=== PATIENT | male | born 1990 ===

== ENCOUNTER 2018-03-08 18:57 | Emergency (ER) | payer BC, OTHER ==
[~2018-03-08] VITALS: Ht 177.8 cm; Wt 84.4 kg
[2018-03-08] MEDS ORDERED: TESTOSTERO200 MG/1 M IM (19:20)
[2018-03-08] MEDS ORDERED: triumeq (19:20)
[2018-03-08] MEDS ORDERED: OMEPRAZOLE10 M1 ORAL (19:20)
--- NOTE | 2018-03-08 19:36 | Emergency Room Report ---
History of Present Illness General Chief Complaint: Skin Rash/Abscess Source: Patient Present Illness HPI 27-year-old male presents to the emergency department complaining of erythema, swelling , 6 out of 10 in severity tenderness to the left anterior thigh 3 days. Patient reports in injecting testosterone intramuscularly in that area on Monday. He states his symptoms have been progressive denies fevers or chills. He reports that he is HIV positive and that his viral load is undetectable however he does not know when his last CD4 count was. Denies paresthesias, or loss of gross motor movements of the affected extremity. Allergies: Coded Allergies: No Known Allergies (Unverified , 03/08/18) Patient History Past Medical History: see triage record, HIV Past Surgical History: none Pertinent Family History: none Immunizations: UTD Reviewed Nursing Documentation: PMH: Agreed; PSxH: Agreed Nursing Documentation-PMH Hx Cardiac Problems: No - HIV+ Hx Gastrointestinal Problems: Yes - H Pylori Review of Systems All Other Systems: negative except mentioned in HPI Physical Exam Vital Signs Date Time Temp Pulse Resp B/P (MAP) Pulse Ox O2 Delivery O2 Flow Rate FiO2 03/08/18 19:13 98.4 104 16 132/90 96 Room Air 98.4 Sp02 EP Interpretation: reviewed, normal General Appearance: no apparent distress, alert, GCS 15, non-toxic Head: normocephalic, atraumatic ENT: hearing grossly normal, normal voice Neck: full range of motion Respiratory: lungs clear, normal breath sounds, speaking full sentences Cardiovascular #1: regular rate, rhythm, no edema, normal capillary refill Musculoskeletal: back normal, gait/station normal, normal range of motion, swelling - distal anterior left thigh. , tender - TTP anterior. left thigh. no extension into the knee. Neurologic: alert, oriented x3, responsive, motor strength/tone normal, sensory intact, normal gait, speech normal, grossly normal Psychiatric: judgement/insight normal Skin: no rash, warm/dry, well hydrated, other - Non-blanching erythema, increased temperature to palpation with swelling noted to the anterior left thigh. Lymphatic: no adenopathy Medical Decision Making PA Attestation Dr. miles is my supervising Physician whom patient management has been discussed with. Diagnostic Impression: Primary Impression: Cellulitis of left thigh Additional Impression: History of HIV infection ER Course 27-year-old male presents to the emergency department complaining of erythema, swelling , 6 out of 10 in severity tenderness to the left anterior thigh 3 days. Patient reports in injecting testosterone intramuscularly in that area on Monday. He states his symptoms have been progressive denies fevers or chills. He reports that he is HIV positive and that his viral load is undetectable however he does not know when his last CD4 count was. Denies paresthesias, or loss of gross motor movements of the affected extremity. Ddx considered but are not limited to cellulitis, Abscess, septic joint, opportunistic infection, Sepsis just to name a few. Vital signs: Mild tachycardia of 104, remaining VS are WNL, pt. is afebrile H&PE are most consistent with the Cellulitis of the left anterior thigh in an immune-compromised individual. No appreciable palpable fluctuance/abscess. No extension into the knee joint. No significant evidence to suggest systemic spread of infection. ORDERS: none required at this time, the diagnosis is clinical Pt. was evaluated by general surgery, Dr. Egan. A bedside ultrasound was performed to is possibility of abscess formation withtin the muscle. ED INTERVENTIONS: - -Keflex PO -Bactrim PO Discussed with this patient that he would've benefited from IV antibiotics loading dose here in the emergency department. However, he respectfully declined. Encouraged this patient to return promptly to the emergency department with worsening or new symptoms otherwise follow-up with his primary care/infectious disease doctor within 3-5 days. DISCHARGE: At this time pt. is stable for d/c to home. Will provide printed patient care instructions, and any necessary prescriptions. Care plan and follow up instructions have been discussed with the patient prior to discharge. Last Vital Signs Date Time Temp Pulse Resp B/P (MAP) Pulse Ox O2 Delivery O2 Flow Rate FiO2 03/08/18 19:13 98.4 104 16 132/90 96 Room Air 98.4 Disposition: HOME, SELF-CARE Condition: Stable Physician Consult: Dr. Egan ( General Surgery) Scripts Ibuprofen* (MOTRIN*) 600 Mg Tablet 600 MG ORAL THREE TIMES A DAY, #20 TAB 0 Refills Prov: Glory Hurt P.A. 03/08/18 Trimethoprim/Sulfamethoxazole 160/800* (BACTRIM DS TABLET*) 1 Each Tablet 1 TAB ORAL DAILY, #14 TAB Prov: Glory Hurt P.A. 03/08/18 Cephalexin* (KEFLEX*) 500 Mg Capsule 500 MG ORAL EVERY 12 HOURS for 7 Days, #14 CAP 0 Refills Prov: Glory Hurt 03/08/18 Patient Instructions: Cellulitis, [id number] Additional Instructions: Take medications as directed. Follow up with a Primary Care Provider in 3-5 days, even if your symptoms have resolved. --Please review list of primary care clinics, if you do not already have a primary care provider Return sooner to ED if new symptoms occur, or current symptoms become worse. - Please note that this Emergency Department Report was dictated using [employer] room maid technology software, occasionally this can lead to erroneous entry secondary to interpretation by the dictation equipment. Glory Hurt March 08, 2018 19:36
[2018-03-08] MEDS ORDERED: Bactrim-DS 1 tab ORAL ONE ×2 (19:45→20:00)
[2018-03-08] MEDS ORDERED: Cephalexin 500mg cap ORAL ONE ×2 (19:45→20:00)
--- NOTE | 2018-03-08 20:01 | Consultation ---
History of Present Illness General Date patient seen: March 08, 2018 Chief Complaint: Skin Rash/Abscess Reason for Consultation: left thigh cellulitis Present Illness HPI 27 year old male with history of HIV+ controlled on testosterone supplementation via PCP presented with left thigh pain and swelling for 1-2 days. states that he usually injects testosterone three times a week into thighs. sometimes into right thigh and sometimes into left. does not like gluteal injections. last injection monday and noted pain, swelling, and redness in left anterior thigh. called his PCP and came to ED for evaluation. surgery called to evaluate for possible abscess vs cellulitis. patient seen, chart reviewed, patient examined. Allergies: Coded Allergies: No Known Allergies (Unverified , 03/08/18) Medication History Scheduled Omeprazole (Omeprazole), Unknown Dose ORAL DAILY, (Reported) Testosterone Cypionate (Testosterone Cypionate), 200 MG IM ONCE A WEEK, ( Reported) Miscellaneous Medications [triumeq], (Reported) Patient History History Provided By: Patient, Medical Record Healthcare decision maker Resuscitation status Advanced Directive on File Past Medical/Surgical History Past Medical/Surgical History: (1) Cellulitis of left thigh Review of Systems All Other Systems: negative except mentioned in HPI Physical Exam General Appearance: no apparent distress, alert Lines, tubes and drains: peripheral HEENT: normocephalic, mucous membranes moist Neck: non-tender Respiratory/Chest: chest wall non-tender, lungs clear, normal breath sounds, no respiratory distress, no accessory muscle use Cardiovascular/Chest: normal peripheral pulses, normal rate, regular rhythm Abdomen: normal bowel sounds, non tender, soft, no organomegaly, no mass Extremities: other - left thigh with mild edema, mild erythema, warmth, no fluctuance no drainage Skin Exam: normal pigmentation Neurologic: alert, oriented x 3 Last 24 Hour Vital Signs Date Time Temp Pulse Resp B/P (MAP) Pulse Ox O2 Delivery O2 Flow Rate FiO2 03/08/18 19:13 98.4 104 16 132/90 96 Room Air 98.4 Height (Feet): 5 Height (Inches): 10.00 Weight (Pounds): 186 Assessment/Plan Problem List: (1) Cellulitis of left thigh Assessment & Plan: 27M cellulitis of left thigh after injection of testosterone. afebrile, HD Stable, exam as above. bedside ultrasound performed by myself and no abscess noted. some mild edema around subcutaneous fat but no large fluid collection. patient states improved over the past day but came to evaluation -no acute surgical intervention necessary -keep leg elevated when possible -activity as tolerated -oral Abx Rx -okay to d/c. follow up with me next week return to ED if worsening condition. ICD Codes: L03.116 - Cellulitis of left lower limb SNOMED: [id number] Status: stable CassiaSemaj March 08, 2018 20:01
[2018-03-08] MEDS ORDERED: BACTRIM DS TAB1 EAC1 ORAL (20:09)
[2018-03-08] MEDS ORDERED: CEPHALEXIN500 MG ORAL (20:09)
[2018-03-08] MEDS ORDERED: IBUPROFEN600 MG ORAL (20:10)
[2018-03-08 20:19] VITALS: BP 124/83
[2018-03-08 20:20] VITALS: BP 132/90
== END 2018-03-08 20:20 | disposition home or self-care (01) ==
LOC: EMR 20:03
DX: L03.116 Cellulitis of left lower limb (principal); Z21 Asymptomatic human immunodeficiency virus [HIV] infection status
CPT/HCPCS: 99284

== ENCOUNTER 2018-11-12 11:10 | Emergency (ER) | payer BC, OTHER ==
[~2018-11-12] VITALS: Ht 177.8 cm; Wt 70.8 kg
[~2018-11-12 11:10] MED LIST: BACTRIM DS TAB1 EAC1 ORAL; CEPHALEXIN500 MG ORAL; IBUPROFEN600 MG ORAL; OMEPRAZOLE10 M1 ORAL; TESTOSTERO200 MG/1 M IM; triumeq
[2018-11-12 11:20] VITALS: BP 117/67
--- NOTE | 2018-11-12 11:20 | NUR ---
ED Nurse Note: Patient arrived, ambulatory, alert and oriented x4. No distress. Came in for complain of nausea, vomiting, pain and diarrhea that started last Monday night. Patient reports he has eaten meat prior to episodes. He reports BM today x3, soft, no nausea or vomiting. With complain of 8-9/10 cramping abdominal pain.
[2018-11-12] MEDS ORDERED: Mylanta II UD 30ml ORAL ONE (11:30)
[2018-11-12] MEDS ORDERED: Lidocaine 2% Visc 15ml soln ORAL ONE (11:30)
[2018-11-12] MEDS ORDERED: LEVOFLOXACIN500 MG ORAL (11:32)
[2018-11-12] MEDS ORDERED: AMOXICILLIN500 MG ORAL (11:32)
[2018-11-12] MEDS ORDERED: TRIUMEQ 600-501 EACH PO (11:32)
[2018-11-12] MEDS ORDERED: METRONIDAZOLE500 MG ORAL (11:32)
[2018-11-12] MEDS ORDERED: OMEPRAZOLE40 M1 ORAL (11:32)
[2018-11-12 11:57] LABS: APPEARANCE,URINE CLEAR; BASOPHILS % (AUTO) 0.9 % (0.0-2.0); BILIRUBIN, URINE NEGATIVE (NEGATIVE); COLOR,URINE PALE YELLOW; EOSINOPHILS % (AUTO) 0.9 % (0.0-3.0); GLUCOSE, URINE (UA) NEGATIVE (NEGATIVE); HEMATOCRIT 46.8 % (42.0-52.0); HEMOGLOBIN 15.5 G/DL (14.2-18.0); KETONES,URINE NEGATIVE (NEGATIVE); LEUKOCYTE ESTERASE ,URINE 1+ (NEGATIVE); LYMPHOCYTES % (AUTO) 36.3 % (20.0-45.0); MEAN CORPUSCULAR VOLUME 91 FL (80-99); MONOCYTES % (AUTO) 12.1 % (1.0-10.0); NEUTROPHILS % (AUTO) 49.8 % (45.0-75.0); NITRITE,URINE NEGATIVE (NEGATIVE); PH,URINE 7 (4.5-8.0); PLATELET COUNT 256 K/UL (150-450); PROTEIN,URINE NEGATIVE (NEGATIVE); RED BLOOD COUNT 5.14 M/UL (4.70-6.10); UROBILINOGEN,URINE NORMAL MG/DL (0.0-1.0); WHITE BLOOD COUNT 4.6 K/UL (4.8-10.8)
[2018-11-12 12:15] LABS: ANION GAP 6 mmol/L (5-15); BLOOD UREA NITROGEN 8 mg/dL (7-18); CALCIUM 8.9 MG/DL (8.5-10.1); CARBON DIOXIDE 29 MMOL/L (21-32); CHLORIDE 105 MMOL/L (98-107); CREATININE 1.3 MG/DL (0.55-1.30); POTASSIUM 4.4 MMOL/L (3.5-5.1); SODIUM 140 MMOL/L (136-145)
[2018-11-12 12:19] LABS: ALANINE AMINOTRANSFERASE 75 U/L (12-78); ALBUMIN 3.3 G/DL (3.4-5.0); ALKALINE PHOSPHATASE 75 U/L (46-116); ASPARTATE AMINO TRANSFERASE 24 U/L (15-37); BILIRUBIN,TOTAL 0.2 MG/DL (0.2-1.0)
--- NOTE | 2018-11-12 14:36 | Emergency Room Report ---
History of Present Illness General Chief Complaint: Abdominal Pain Source: Medical Record Present Illness Allergies: Coded Allergies: No Known Allergies (Unverified , 11/12/18) Nursing Documentation-PMH Hx Cardiac Problems: No - HIV+ Hx Gastrointestinal Problems: Yes - H Pylori, ecoli shigella Physical Exam Vital Signs Date Time Temp Pulse Resp B/P (MAP) Pulse Ox O2 Delivery O2 Flow Rate FiO2 11/12/18 11:14 98.1 87 16 122/79 97 11/12/18 11:20 Room Air Medical Decision Making Laboratory Tests Test 11/12/18 11:23 White Blood Count 4.6 K/UL (4.8-10.8) L Red Blood Count 5.14 M/UL (4.70-6.10) Hemoglobin 15.5 G/DL (14.2-18.0) Hematocrit 46.8 % (42.0-52.0) Mean Corpuscular Volume 91 FL (80-99) Mean Corpuscular Hemoglobin 30.2 PG (27.0-31.0) Mean Corpuscular Hemoglobin Concent 33.2 G/DL (32.0-36.0) Red Cell Distribution Width 14.0 % (11.6-14.8) Platelet Count 256 K/UL (150-450) Mean Platelet Volume 5.8 FL (6.5-10.1) L Neutrophils (%) (Auto) 49.8 % (45.0-75.0) Lymphocytes (%) (Auto) 36.3 % (20.0-45.0) Monocytes (%) (Auto) 12.1 % (1.0-10.0) H Eosinophils (%) (Auto) 0.9 % (0.0-3.0) Basophils (%) (Auto) 0.9 % (0.0-2.0) Urine Color Pale yellow Urine Appearance Clear Urine pH 7 (4.5-8.0) Urine Specific [place] 1.005 (1.005-1.035) Urine Protein Negative (NEGATIVE) Urine Glucose (UA) Negative (NEGATIVE) Urine Ketones Negative (NEGATIVE) Urine Blood Negative (NEGATIVE) Urine Nitrite Negative (NEGATIVE) Urine Bilirubin Negative (NEGATIVE) Urine Urobilinogen Normal MG/DL (0.0-1.0) Urine Leukocyte Esterase 1+ (NEGATIVE) H Urine RBC 0 /HPF (0 - 0) Urine WBC 0-2 /HPF (0 - 0) Urine Squamous Epithelial Cells Occasional /LPF Urine Bacteria Occasional /HPF (NONE) Sodium Level 140 MMOL/L (136-145) Potassium Level 4.4 MMOL/L (3.5-5.1) Chloride Level 105 MMOL/L (98-107) Carbon Dioxide Level 29 MMOL/L (21-32) Anion Gap 6 mmol/L (5-15) Blood Urea Nitrogen 8 mg/dL (7-18) Creatinine 1.3 MG/DL (0.55-1.30) Estimate Glomerular Filtration Rate > 60 mL/min (>60) Glucose Level 81 MG/DL (74-106) Calcium Level 8.9 MG/DL (8.5-10.1) Total Bilirubin 0.2 MG/DL (0.2-1.0) Aspartate Amino Transferase (AST) 24 U/L (15-37) Alanine Aminotransferase (ALT) 75 U/L (12-78) Alkaline Phosphatase 75 U/L (46-116) Total Protein 6.7 G/DL (6.4-8.2) Albumin 3.3 G/DL (3.4-5.0) L Globulin 3.4 g/dL Albumin/Globulin Ratio 1.0 (1.0-2.7) Lipase 91 U/L (73-393) Last Vital Signs Date Time Temp Pulse Resp B/P (MAP) Pulse Ox O2 Delivery O2 Flow Rate FiO2 11/12/18 11:20 81 16 Room Air 11/12/18 11:20 97.6 117/67 98 Referrals: JOSEPH ESPARZA D.O. (PCP) Tasneem Swann DO Nov 12, 2018 14:36
[2018-11-12] MEDS ORDERED: SIMETHICONE125 M1 PO (14:39)
[2018-11-12] MEDS ORDERED: ACIDOPHILUS PR1 EACH PO (14:39)
[2018-11-12 14:45] VITALS: BP 120/67
[2018-11-12 14:47] VITALS: BP 120/67
--- NOTE | 2018-11-12 14:47 | NUR ---
ED Nurse Note: Patient reports pain and nausea improved. No episode of vomiting during stay. With order of discharge. Patient's vital signs stable. IV discontinued. Discharge instructions and prescription given to patient and vebralized understanding. Stable ambulation noted. Discharged home.
== END 2018-11-12 14:50 | disposition home or self-care (01) ==
LOC: EMR 11:53
DX: R10.9 Unspecified abdominal pain (principal)
CPT/HCPCS: 36415; 80053; 81003; 83690; 85025; 96361; 96374; 96375; 99284; J2405; S0028

== ENCOUNTER 2019-02-07 02:35 | Emergency (ER) | payer BC, OTHER ==
[~2019-02-07] VITALS: Ht 152.4 cm; Wt 77.1 kg
[~2019-02-07 02:35] MED LIST changes: +ACIDOPHILUS PR1 EACH PO; +AMOXICILLIN500 MG ORAL; +LEVOFLOXACIN500 MG ORAL; +METRONIDAZOLE500 MG ORAL; +OMEPRAZOLE40 M1 ORAL; +SIMETHICONE125 M1 PO; +TRIUMEQ 600-501 EACH PO
--- NOTE | 2019-02-07 02:56 | Emergency Room Report ---
History of Present Illness General Chief Complaint: Abdominal Pain Source: Patient Present Illness HPI Patient is a 28-year-old male presented after increased abdominal discomfort and distention. Patient reports having increased epigastric pain which radiates to his chest and back. He reports having prior history of H. pylori and gastritis. He states he took some omeprazole as well as loratadine. With some improvement in symptoms. Patient additionally took some ciprofloxacin which he had at home. Patient stated he had been having increased constipation. Patient denies any bleeding. He denies any lower abdominal pain.Patient reports having some alcohol earlier in the day. Allergies: Coded Allergies: No Known Allergies (Unverified , 11/12/18) Patient History Past Medical History: see triage record, HIV Reviewed Nursing Documentation: PMH: Agreed; PSxH: Agreed Nursing Documentation-PMH Past Medical History: No History, Except For Hx Cardiac Problems: No - HIV+ Hx Gastrointestinal Problems: Yes - H Pylori Review of Systems All Other Systems: negative except mentioned in HPI Physical Exam Vital Signs Date Time Temp Pulse Resp B/P (MAP) Pulse Ox O2 Delivery O2 Flow Rate FiO2 02/07/19 02:40 97.9 69 18 155/96 100 Room Air Sp02 EP Interpretation: reviewed, normal General Appearance: normal inspection, well appearing, no apparent distress, alert, GCS 15, non-toxic Head: atraumatic ENT: normal ENT inspection, hearing grossly normal, normal voice Neck: normal inspection, full range of motion, supple, no bony tend Respiratory: normal inspection, lungs clear, normal breath sounds, no respiratory distress, no retraction, no wheezing Cardiovascular #1: regular rate, rhythm, no edema Gastrointestinal: normal inspection, normal bowel sounds, non tender, soft, no guarding, no hernia Genitourinary: no CVA tenderness Musculoskeletal: normal inspection, back normal, normal range of motion Neurologic: normal inspection, alert, responsive, speech normal Psychiatric: normal inspection, judgement/insight normal, mood/affect normal Skin: normal inspection, normal color, no rash Medical Decision Making Diagnostic Impression: Primary Impression: Gastritis Additional Impression: History of HIV infection ER Course Patient presented for abdominal pain. Differential diagnoses included ischemic bowel, appendicitis, perforated viscus, abdominal aortic aneurysm, inferior myocardial infarction, viral gastroenteritis among others. Because of complexity of patient's case laboratory testing and imaging studies were ordered. Patient was given IV fluids as well as acid blockers. Patient was given GI cocktail with some improvement. Patient was noted to have long- standing history of gastritis. Patient was advised to follow-up with his primary care physician for recheck in the next 1 to 2 days. He is to return if any worsening of condition or other concerns. Labs Test 02/07/19 02:45 02/07/19 03:45 White Blood Count 6.6 K/UL (4.8-10.8) Red Blood Count 4.97 M/UL (4.70-6.10) Hemoglobin 15.2 G/DL (14.2-18.0) Hematocrit 45.1 % (42.0-52.0) Mean Corpuscular Volume 91 FL (80-99) Mean Corpuscular Hemoglobin 30.5 PG (27.0-31.0) Mean Corpuscular Hemoglobin Concent 33.6 G/DL (32.0-36.0) Red Cell Distribution Width 12.9 % (11.6-14.8) Platelet Count 293 K/UL (150-450) Mean Platelet Volume 4.9 FL (6.5-10.1) Neutrophils (%) (Auto) 56.5 % (45.0-75.0) Lymphocytes (%) (Auto) 30.7 % (20.0-45.0) Monocytes (%) (Auto) 10.6 % (1.0-10.0) Eosinophils (%) (Auto) 1.2 % (0.0-3.0) Basophils (%) (Auto) 1.0 % (0.0-2.0) Sodium Level 139 MMOL/L (136-145) Potassium Level 3.9 MMOL/L (3.5-5.1) Chloride Level 103 MMOL/L (98-107) Carbon Dioxide Level 28 MMOL/L (21-32) Anion Gap 8 mmol/L (5-15) Blood Urea Nitrogen 15 mg/dL (7-18) Creatinine 1.3 MG/DL (0.55-1.30) Estimat Glomerular Filtration Rate > 60 mL/min (>60) Glucose Level 94 MG/DL (74-106) Calcium Level 8.6 MG/DL (8.5-10.1) Total Bilirubin 0.4 MG/DL (0.2-1.0) Aspartate Amino Transf (AST/SGOT) 32 U/L (15-37) Alanine Aminotransferase (ALT/SGPT) 32 U/L (12-78) Alkaline Phosphatase 73 U/L (46-116) Troponin I 0.014 ng/mL (0.000-0.056) Total Protein 7.1 G/DL (6.4-8.2) Albumin 3.5 G/DL (3.4-5.0) Globulin 3.6 g/dL Albumin/Globulin Ratio 1.0 (1.0-2.7) Lipase 90 U/L (73-393) Urine Color Pale yellow Urine Appearance Clear Urine pH 7 (4.5-8.0) Urine Specific [place] 1.010 (1.005-1.035) Urine Protein Negative (NEGATIVE) Urine Glucose (UA) Negative (NEGATIVE) Urine Ketones Negative (NEGATIVE) Urine Blood Negative (NEGATIVE) Urine Nitrite Negative (NEGATIVE) Urine Bilirubin Negative (NEGATIVE) Urine Urobilinogen Normal MG/DL (0.0-1.0) Urine Leukocyte Esterase 1+ (NEGATIVE) Urine RBC 0-2 /HPF (0 - 0) Urine WBC 0-2 /HPF (0 - 0) Urine Squamous Epithelial Cells None /LPF (NONE/OCC) Urine Bacteria None /HPF (NONE) EKG Diagnostic Results Rate: normal - 84 Rhythm: NSR ST Segments: no acute changes Last Vital Signs Date Time Temp Pulse Resp B/P (MAP) Pulse Ox O2 Delivery O2 Flow Rate FiO2 02/07/19 02:40 97.9 69 18 155/96 100 Room Air Status: improved Disposition: HOME, SELF-CARE Condition: Stable Scripts Docusate Sodium* (COLACE*) 100 Mg Capsule 100 MG ORAL TWICE A DAY for constipation, #30 CAP Prov: Geoffrey Torres MD 02/07/19 Dicyclomine Hcl* (DICYCLOMINE HCL*) 10 Mg Capsule 10 MG PO QID, #30 CAP Prov: Geoffrey Torres MD 02/07/19 Geoffrey Torres MD Feb 07, 2019 02:56
[2019-02-07] MEDS ORDERED: Dicyclomine HCl 10mg/5ml oral soln ORAL ONE (03:00)
[2019-02-07] MEDS ORDERED: Mylanta II UD 30ml ORAL ONE (03:00)
[2019-02-07] MEDS ORDERED: Lidocaine 2% Visc 15ml soln ORAL ONE (03:00)
[2019-02-07] MEDS ORDERED: Ketorolac 30mg Inj IV ONE (03:15)
[2019-02-07 03:20] LABS: EOSINOPHILS % (AUTO) 1.2 % (0.0-3.0); HEMATOCRIT 45.1 % (42.0-52.0); HEMOGLOBIN 15.2 G/DL (14.2-18.0); LYMPHOCYTES % (AUTO) 30.7 % (20.0-45.0); MEAN CORPUSCULAR VOLUME 91 FL (80-99); MONOCYTES % (AUTO) 10.6 % (1.0-10.0); NEUTROPHILS % (AUTO) 56.5 % (45.0-75.0); PLATELET COUNT 293 K/UL (150-450); RED BLOOD COUNT 4.97 M/UL (4.70-6.10); RED CELL DISTRIBUTION WIDTH 12.9 % (11.6-14.8); WHITE BLOOD COUNT 6.6 K/UL (4.8-10.8)
[2019-02-07 03:21] VITALS: BP 148/90
[2019-02-07 03:31] LABS: ANION GAP 8 mmol/L (5-15); BLOOD UREA NITROGEN 15 mg/dL (7-18); CALCIUM 8.6 MG/DL (8.5-10.1); CARBON DIOXIDE 28 MMOL/L (21-32); CHLORIDE 103 MMOL/L (98-107); CREATININE 1.3 MG/DL (0.55-1.30); POTASSIUM 3.9 MMOL/L (3.5-5.1); SODIUM 139 MMOL/L (136-145)
[2019-02-07 03:35] LABS: ALANINE AMINOTRANSFERASE 32 U/L (12-78); ALBUMIN 3.5 G/DL (3.4-5.0); ALKALINE PHOSPHATASE 73 U/L (46-116); ASPARTATE AMINO TRANSFERASE 32 U/L (15-37); BILIRUBIN,TOTAL 0.4 MG/DL (0.2-1.0)
[2019-02-07] MEDS ORDERED: COLACE100 MG ORAL (03:48)
[2019-02-07] MEDS ORDERED: DICYCLOMINE HCL10 MG PO (03:48)
[2019-02-07 03:58] VITALS: BP 134/78
[2019-02-07 03:58] LABS: APPEARANCE,URINE CLEAR; BILIRUBIN, URINE NEGATIVE (NEGATIVE); COLOR,URINE PALE YELLOW; GLUCOSE, URINE (UA) NEGATIVE (NEGATIVE); KETONES,URINE NEGATIVE (NEGATIVE); LEUKOCYTE ESTERASE ,URINE 1+ (NEGATIVE); NITRITE,URINE NEGATIVE (NEGATIVE); PH,URINE 7 (4.5-8.0); PROTEIN,URINE NEGATIVE (NEGATIVE); UROBILINOGEN,URINE NORMAL MG/DL (0.0-1.0)
[2019-02-07 03:59] VITALS: BP 134/78
--- NOTE | 2019-02-08 22:00 | Cardiology Report ---
APPROVED REPORT EKG Measurement Heart [id number] Normal sinus rhythm Incomplete right bundle branch block Borderline ECG
== END 2019-02-07 03:59 | disposition home or self-care (01) ==
LOC: EMR 02:54
DX: K29.70 Gastritis, unspecified, without bleeding (principal)
CPT/HCPCS: 36415; 80053; 81003; 83690; 84484; 85025; 93005; 96361; 96374; 96375; 99284; J1885; J2405

== ENCOUNTER 2019-09-10 10:35 | Emergency (ER) | payer BC, OTHER ==
[~2019-09-10] VITALS: Ht 177.8 cm; Wt 83.9 kg
[~2019-09-10 10:35] MED LIST changes: +COLACE100 MG ORAL; +DICYCLOMINE HCL10 MG PO
[2019-09-10 11:00] VITALS: BP 154/99
--- NOTE | 2019-09-10 11:00 | NUR ---
ED Nurse Note: patient walked into ER from home d/t lower left abdomen cramping pain 8/10 radiating to right lower abdomen that started 2 days ago. Patient aao x 4 and ambulatory. Patient stated he has hx of gall stones and kidney stones. Per patient, he was taking atb for h.pylori and stopped 3 days ago. Patient changed into gown and placed on shelter monitor. Patient calm and cooperative. No acute distress noted.
--- NOTE | 2019-09-10 11:27 | Emergency Room Report ---
History of Present Illness General Chief Complaint: General Complaint Source: Patient Present Illness HPI Patient is a 29-year-old male presents after increased sore throat and discoloration to his tongue. He reports having multiple areas of pain including his epigastric area as well as his right lower abdomen. He states that he had recently finished a course of antibiotics for H. pylori treatment. He is currently taking medications for HIV. He is followed by Dr. King. Patient denies any fever.He reports having prior endoscopy and having burning sensation to the chest as well as to the throat. He reports having prior history of anxiety.He states that he takes hGH as well as steroids. Allergies: Coded Allergies: No Known Allergies (Unverified , 11/12/18) Patient History Past Medical History: see triage record Reviewed Nursing Documentation: PMH: Agreed; PSxH: Agreed Nursing Documentation-PMH Hx Gastrointestinal Problems: Yes - H Pylori Review of Systems All Other Systems: negative except mentioned in HPI Physical Exam Vital Signs Date Time Temp Pulse Resp B/P (MAP) Pulse Ox O2 Delivery O2 Flow Rate FiO2 09/10/19 10:41 98.6 108 22 148/108 (121) 95 Room Air Sp02 EP Interpretation: reviewed, normal General Appearance: normal inspection, well appearing, no apparent distress, alert, GCS 15, non-toxic Head: atraumatic ENT: normal ENT inspection, hearing grossly normal, normal voice, other - tongue with some discoloration Neck: normal inspection, full range of motion, supple, no bony tend Respiratory: normal inspection, lungs clear, normal breath sounds, no respiratory distress, no retraction, no wheezing Cardiovascular #1: regular rate, rhythm, no edema Gastrointestinal: normal inspection, normal bowel sounds, soft, no guarding, no hernia Genitourinary: no CVA tenderness Musculoskeletal: normal inspection, back normal, normal range of motion Neurologic: alert, motor strength/tone normal, software packager III-XII nml as tested, EOM palsy, oriented x3, responsive, speech normal, normal inspection Psychiatric: normal inspection, judgement/insight normal, mood/affect normal Skin: no rash Medical Decision Making Diagnostic Impression: Primary Impression: Gastritis Additional Impression: GERD (gastroesophageal reflux disease) ER Course Patient presented for abdominal pain. Differential diagnoses included ischemic bowel, appendicitis, perforated viscus, abdominal aortic aneurysm, inferior myocardial infarction, viral gastroenteritis among others.Because patient's complexity imaging studies, and laboratory testing ordered. Laboratory testing showed . Electrolytes Lipase was White blood count was CT of the abdomen pelvis showed: Patient appears to be stable for close outpatient follow up. Labs Test 09/10/19 11:00 White Blood Count 5.8 K/UL (4.8-10.8) Red Blood Count 5.47 M/UL (4.70-6.10) Hemoglobin 15.5 G/DL (14.2-18.0) Hematocrit 48.1 % (42.0-52.0) Mean Corpuscular Volume 88 FL (80-99) Mean Corpuscular Hemoglobin 28.3 PG (27.0-31.0) Mean Corpuscular Hemoglobin Concent 32.2 G/DL (32.0-36.0) Red Cell Distribution Width 13.7 % (11.6-14.8) Platelet Count 415 K/UL (150-450) Mean Platelet Volume 4.5 FL (6.5-10.1) Neutrophils (%) (Auto) 68.2 % (45.0-75.0) Lymphocytes (%) (Auto) 23.1 % (20.0-45.0) Monocytes (%) (Auto) 7.0 % (1.0-10.0) Eosinophils (%) (Auto) 0.9 % (0.0-3.0) Basophils (%) (Auto) 0.8 % (0.0-2.0) Prothrombin Time 11.0 SEC (9.30-11.50) Prothromb Time International Ratio 1.0 (0.9-1.1) Activated Partial Thromboplast Time 27 SEC (23-33) Urine Color Pale yellow Urine Appearance Clear Urine pH 7 (4.5-8.0) Urine Specific [place] 1.010 (1.005-1.035) Urine Protein 1+ (NEGATIVE) Urine Glucose (UA) Negative (NEGATIVE) Urine Ketones Negative (NEGATIVE) Urine Blood 1+ (NEGATIVE) Urine Nitrite Negative (NEGATIVE) Urine Bilirubin Negative (NEGATIVE) Urine Urobilinogen Normal MG/DL (0.0-1.0) Urine Leukocyte Esterase Negative (NEGATIVE) Urine RBC 0-2 /HPF (0 - 0) Urine WBC 0-2 /HPF (0 - 0) Urine Squamous Epithelial Cells Occasional /LPF Urine Bacteria Few /HPF (NONE) Sodium Level 141 MMOL/L (136-145) Potassium Level 4.3 MMOL/L (3.5-5.1) Chloride Level 107 MMOL/L (98-107) Carbon Dioxide Level 23 MMOL/L (21-32) Anion Gap 11 mmol/L (5-15) Blood Urea Nitrogen 14 mg/dL (7-18) Creatinine 1.0 MG/DL (0.55-1.30) Estimat Glomerular Filtration Rate > 60 mL/min (>60) Glucose Level 112 MG/DL (74-106) Calcium Level 8.1 MG/DL (8.5-10.1) Total Bilirubin 0.4 MG/DL (0.2-1.0) Aspartate Amino Transf (AST/SGOT) 34 U/L (15-37) Alanine Aminotransferase (ALT/SGPT) 71 U/L (12-78) Alkaline Phosphatase 54 U/L (46-116) Troponin I 0.005 ng/mL (0.000-0.056) Total Protein 7.4 G/DL (6.4-8.2) Albumin 3.6 G/DL (3.4-5.0) Globulin 3.8 g/dL Albumin/Globulin Ratio 0.9 (1.0-2.7) Lipase 166 U/L (73-393) Last Vital Signs Date Time Temp Pulse Resp B/P (MAP) Pulse Ox O2 Delivery O2 Flow Rate FiO2 09/10/19 11:00 98.6 110 22 154/99 96 Room Air Geoffrey Torres MD Sep 10, 2019 11:27
[2019-09-10] MEDS ORDERED: Dicyclomine HCl 10mg/5ml oral soln ORAL ONE (11:30)
[2019-09-10] MEDS ORDERED: Lidocaine 2% Visc 15ml soln ORAL ONE (11:30)
[2019-09-10 11:37] LABS: APPEARANCE,URINE CLEAR; BASOPHILS % (AUTO) 0.8 % (0.0-2.0); BILIRUBIN, URINE NEGATIVE (NEGATIVE); COLOR,URINE PALE YELLOW; EOSINOPHILS % (AUTO) 0.9 % (0.0-3.0); GLUCOSE, URINE (UA) NEGATIVE (NEGATIVE); HEMATOCRIT 48.1 % (42.0-52.0); HEMOGLOBIN 15.5 G/DL (14.2-18.0); KETONES,URINE NEGATIVE (NEGATIVE); LEUKOCYTE ESTERASE ,URINE NEGATIVE (NEGATIVE); LYMPHOCYTES % (AUTO) 23.1 % (20.0-45.0); MEAN CORPUSCULAR VOLUME 88 FL (80-99); NEUTROPHILS % (AUTO) 68.2 % (45.0-75.0); NITRITE,URINE NEGATIVE (NEGATIVE); PH,URINE 7 (4.5-8.0); PLATELET COUNT 415 K/UL (150-450); PROTEIN,URINE 1+ (NEGATIVE); RED BLOOD COUNT 5.47 M/UL (4.70-6.10); RED CELL DISTRIBUTION WIDTH 13.7 % (11.6-14.8); UROBILINOGEN,URINE NORMAL MG/DL (0.0-1.0); WHITE BLOOD COUNT 5.8 K/UL (4.8-10.8)
[2019-09-10 11:42] LABS: ANION GAP 11 mmol/L (5-15); BLOOD UREA NITROGEN 14 mg/dL (7-18); CALCIUM 8.1 MG/DL (8.5-10.1); CARBON DIOXIDE 23 MMOL/L (21-32); CHLORIDE 107 MMOL/L (98-107); POTASSIUM 4.3 MMOL/L (3.5-5.1); SODIUM 141 MMOL/L (136-145)
[2019-09-10 11:46] LABS: ALANINE AMINOTRANSFERASE 71 U/L (12-78); ALBUMIN 3.6 G/DL (3.4-5.0); ALBUMIN/GLOBULIN RATIO 0.9 (1.0-2.7); ALKALINE PHOSPHATASE 54 U/L (46-116); ASPARTATE AMINO TRANSFERASE 34 U/L (15-37); BILIRUBIN,TOTAL 0.4 MG/DL (0.2-1.0)
[2019-09-10] MEDS ORDERED: Omnipaque-300 100ml vial INJ PRN (12:45)
--- NOTE | 2019-09-10 13:27 | NUR ---
ED Nurse Note: Patient returned from CT scan in [facility]. Reports no N/V.
--- NOTE | 2019-09-10 13:35 | NUR ---
ED Nurse Note: ERMD notified of patient's c/o abdominal pain. No N/V noted at this time. Patient closed his eye, resting in bed. No facial griamcing or guarding noted.
[2019-09-10 13:42] VITALS: BP 134/83
[2019-09-10] MEDS ORDERED: Ketorolac 30mg Inj IV ONE (14:15)
--- NOTE | 2019-09-10 14:17 | Diagnostic Imaging Report ---
Indication: Abdominal pain Technique: Continuous helical transaxial imaging of the abdomen and pelvis was obtained from the lung bases to the pubic symphysis during intravenous contrast administration. Coronal 2-D reformats were also obtained. Study obtained in a Siemens sensation [address] Automatic Exposure Control was utilized. Total Dose length Product (DLP): [address] Dose Index Volume (CTDIvol): 16.5 mGy Comparison: None Findings: Lung bases are clear. Gallbladder is contracted. The liver and spleen are unremarkable. There are multiple small calcific nonobstructive stones within both kidneys. There is no hydronephrosis. Bowel gas pattern is nonobstructive. There is no free fluid. Bladder is nondistended. Appendix is partially seen and appears normal. IMPRESSION: Bilateral nonobstructive nephrolithiasis. The CT scanner at [facility] is accredited by the [employer] and the scans are performed using dose optimization techniques as appropriate to a performed exam including Automatic Exposure control.
[2019-09-10] MEDS ORDERED: ONDANSETRON ODT4 MG BC (14:35)
[2019-09-10] MEDS ORDERED: NORCO 5-325 TA1 EACH ORAL ×2 (14:35→14:37)
[2019-09-10 16:45] VITALS: BP 134/83
--- NOTE | 2019-09-10 16:45 | NUR ---
ER DISCHARGE NOTE: Patient is cleared to be discharged per ERMD Dr. Torres, pt is aox4, on room air, with stable vital signs. pt was given dc and prescription instructions, pt was able to verbalize understanding, pt id band and iv site removed without complications. pt is able to ambulate with steady gait. pt took all belongings.
--- NOTE | 2019-09-11 15:07 | Cardiology Report ---
APPROVED REPORT EKG Measurement Heart [id number] Normal sinus rhythm Incomplete right bundle branch block Borderline ECG
== END 2019-09-10 16:45 | disposition home or self-care (01) ==
LOC: EMR 11:47
DX: K29.70 Gastritis, unspecified, without bleeding (principal); K21.9 Gastro-esophageal reflux disease without esophagitis; B20 Human immunodeficiency virus [HIV] disease
CPT/HCPCS: 36415; 74177; 80053; 81003; 83690; 84484; 85025; 85610; 85730; 93005; 96374; 96375; 99284; J1885; J7040; Q9967; S0028